=== PATIENT | male | born 1965 | race Caucasian/White ===

== ENCOUNTER 2021-01-17 14:01 | Outpatient (CLI) | payer BC | END 2021-01-17 14:02 | disposition home or self-care (01) | LOC: RT 14:01 | PROVIDERS: ATTEND Internal Medicine Cardiovascular Disease | DX: I45.10 Unspecified right bundle-branch block (principal) ==

== ENCOUNTER 2022-10-08 09:33 | Outpatient (CLI) | payer OTHER ==
[2022-10-08 14:37] LABS: BASOPHILS % (AUTO) 0.8 %; EOSINOPHILS # (AUTO) 0.2 10^3/uL (0.0-0.7); EOSINOPHILS % (AUTO) 3.8 %; HCT - HEMATOCRIT 45.5 % (42.0-52.0); HGB - HEMOGLOBIN 14.3 g/dL (14.0-18.0); LYMPHOCYTES # (AUTO) 1.4 10^3/uL (1.5-3.5); LYMPHOCYTES % (AUTO) 26.4 %; MEAN CORPUSCULAR HEMOGLOBIN 29.4 pg (27.0-31.0); MEAN CORPUSCULAR HGB CONC 31.4 g/dL (32.0-36.0); MEAN CORPUSCULAR VOLUME 93.4 fL (80.0-94.0); MEAN PLATELET VOLUME 10.5 fL (7.4-11.4); MONOCYTES # (AUTO) 0.4 10^3/uL (0.0-1.0); MONOCYTES % (AUTO) 8.3 %; NEUTROPHILS # (AUTO) 3.2 10^3/uL (1.5-6.6); NEUTROPHILS % (AUTO) 60.3 %; PLT - PLATELET COUNT 256 10^3/uL (130-450); RED BLOOD COUNT 4.87 10^6/uL (4.70-6.10); RED CELL DISTRIBUTION WIDTH 13.3 % (12.0-15.0); WHITE BLOOD COUNT 5.3 x10^3/uL (4.8-10.8)
[2022-10-08 15:27] LABS: ALBUMIN 3.9 g/dL (3.2-5.5); ALBUMIN/GLOBULIN RATIO 1.6 (1.0-2.2); ALKALINE PHOSPHATASE 74 IU/L (42-121); ALT ALANINE AMINOTRANSFERASE 17 IU/L (10-60); AST ASPARTATE AMINOTRANSFERASE 19 IU/L (10-42); BILIRUBIN,TOTAL 0.6 mg/dL (0.2-1.0); BUN - BLOOD UREA NITROGEN 14 mg/dL (6-20); CALCIUM 9.4 mg/dL (8.5-10.3); CARBON DIOXIDE - CO2 28 mmol/L (21-32); CHLORIDE 102 mmol/L (101-111); CHOL/HDL RATIO 2.7 (<5.0); CHOLESTEROL 197 mg/dL; GFR - MDRD 76 (>89); GLUCOSE 97 mg/dL (70-100); HDL CHOLESTEROL 72 mg/dL; POTASSIUM 4.7 mmol/L (3.5-5.0); PSA FREE 0.422 ng/mL (0.16-2.81); SODIUM 137 mmol/L (135-145); TOTAL PROTEIN 6.4 g/dL (6.7-8.2); TRIGLYCERIDES 21 mg/dL
[2022-10-08 15:28] LABS: PSA TOTAL 1.916 ng/mL (0.000-2.000)
[2022-10-08 15:40] LABS: THYROID STIMULATING HORMONE 1.33 uIU/mL (0.34-5.60)
[2022-10-08 21:01] LABS: ESTIMATED AVERAGE GLUCOSE 126 mg/dL (70-100)
== END 2022-10-08 09:34 | disposition home or self-care (01) ==
LOC: LAB.S 09:33
PROVIDERS: ATTEND Internal Medicine
DX: N40.1 Benign prostatic hyperplasia with lower urinary tract symptoms (principal); Z13.228 Encounter for screening for other metabolic disorders; Z13.9 Encounter for screening, unspecified; N52.9 Male erectile dysfunction, unspecified; Z80.42 Family history of malignant neoplasm of prostate
CPT/HCPCS: 36415; 80053; 80061; 83036; 83721; 84153; 84154; 84403; 84443; 85025

== ENCOUNTER 2022-10-21 07:04 | Outpatient (CLI) | payer OTHER ==
[2022-10-21 14:39] LABS: CHOL/HDL RATIO 2.8 (<5.0); CHOLESTEROL 202 mg/dL; HDL CHOLESTEROL 72 mg/dL; TRIGLYCERIDES 34 mg/dL
[2022-10-21 15:02] LABS: PSA TOTAL 1.843 ng/mL (0.000-2.000)
[2022-10-21 20:53] LABS: ESTIMATED AVERAGE GLUCOSE 120 mg/dL (70-100); HEMOGLOBIN A1c% 5.8 % (4.27-6.07)
== END 2022-10-21 07:05 | disposition home or self-care (01) ==
LOC: LAB.S 07:04
PROVIDERS: ATTEND Internal Medicine
DX: R89.8 Other abnormal findings in specimens from other organs, systems and tissues (principal)
CPT/HCPCS: 36415; 80061; 83036; 83721; 84153

== ENCOUNTER 2023-04-03 09:57 | Day surgery (SDC) | payer OTHER ==
[2023-04-03] MEDS ORDERED: LACTATED RINGERS 1,000 ML IV ONE ×2 (10:11→13:30)
--- NOTE | 2023-04-03 12:35 | ANESTHESIA ---
Pre-Anesthesia VS, & Labs - Diagnosis screening - Procedure colonoscopy Vital Signs: Temp Pulse Resp BP Pulse Ox O2 Flow Rate 36.5 C 56 L 14 114/72 100 04/03/23 10:23 04/03/23 10:23 04/03/23 10:23 04/03/23 10:23 04/03/23 10:23 Height: 5 ft 7 in Weight (kg): 62.1 kg Body Mass Index: 21.4 BMI Classification: Normal - NPO >8 hours Home Medications and Allergies No Known Home Medications 10/07/13 Allergies/Adverse Reactions: Allergies Allergy/AdvReac Type Severity Reaction Status Date / Time No Known Drug Allergies Allergy Verified 10/07/13 10:10 Anes History & Medical History - Anesthetic History Anesthesia Complications: reports: No previous complications Family history of Anesthesia Complications: Denies Family history of Malignant Hyperthermia: Denies - Medical History Cardiovascular: reports: Murmur, Arrhythmia Pulmonary: reports: None Gastrointestinal: reports: None Urinary: reports: Benign prostate hypertrophy Musculoskeletal: reports: None Endocrine/Autoimmune: reports: None Skin: reports: None - Surgical History General: reports: Colonoscopy Orthopedic: reports: ACL reconstruction Exam General: Alert, Oriented x3, Cooperative Dental: WNL Mouth Openin Fingerbreadth Neck Mobility: Normal Mallampati classification: II Thyromental Distance: 4-6 cm Respiratory: Lungs clear Cardiovascular: Regular rate Plan Anesthesia Type: General, Total IV Consent for Procedure(s) Verified and Reviewed: Yes Code Status: Attempt Resuscitation ASA classification: 1-Healthy patient Is this case an emergency?: No
[2023-04-03] MEDS ORDERED: MIDAZOLAM 2 MG/2 ML VIAL ONE (12:41)
[2023-04-03] MEDS ORDERED: fentaNYL 100 MCG/2 ML VIAL ONE ×2 (13:20→14:32)
[2023-04-03 13:40] VITALS: O2SAT 97
[2023-04-03 13:49] VITALS: BP 115/75
--- NOTE | 2023-04-03 14:16 | ANESTHESIA POST OP EVALUATION ---
Anesthesia Post Eval - Post Anesthesia Eval Vitals: Last Vital Signs Temp 36.7 C 04/03/23 13:47 Pulse 54 L 04/03/23 13:47 Resp 15 04/03/23 13:47 BP 115/75 04/03/23 13:47 Pulse Ox 97 04/03/23 13:47 O2 Flow Rate CV Function Including HR & BP: Stable Pain Control: Satisfactory Nausea & Vomiting: Negative Mental Status: Baseline Respiratory Status: Airway Patent Hydration Status: Satisfactory Anesthesia Complications: None
[2023-04-03] MEDS ORDERED: PROPOFOL 200 MG/20 ML VIAL IVP ONE (14:32)
== END 2023-04-03 09:58 | disposition home or self-care (01) ==
LOC: SDS 09:57
PROVIDERS: ATTEND Surgery
DX: Z12.11 Encounter for screening for malignant neoplasm of colon (principal); Z80.0 Family history of malignant neoplasm of digestive organs
CPT/HCPCS: 45378; J7120

== ENCOUNTER 2023-04-10 09:11 | Outpatient (CLI) | payer OTHER ==
[2023-04-10 15:13] LABS: CHOL/HDL RATIO 3.5 (<5.0); CHOLESTEROL 223 mg/dL; HDL CHOLESTEROL 64 mg/dL; LDL CHOLESTEROL,CALCULATED 150 mg/dL; LDL/HDL RATIO 2.3 (<3.6); TRIGLYCERIDES 44 mg/dL (48-352); VLDL CHOLESTEROL 9 mg/dL
[2023-04-10 15:26] LABS: PSA TOTAL 1.494 ng/mL (0.000-2.000)
[2023-04-14 17:08] LABS: FREE TESTOSTERONE(DIRECT) 9.3 pg/mL (7.2-24.0)
== END 2023-04-10 09:12 | disposition home or self-care (01) ==
LOC: LAB.S 09:11
PROVIDERS: ATTEND Internal Medicine
DX: R89.8 Other abnormal findings in specimens from other organs, systems and tissues (principal); Z80.42 Family history of malignant neoplasm of prostate; N40.1 Benign prostatic hyperplasia with lower urinary tract symptoms; N52.9 Male erectile dysfunction, unspecified
CPT/HCPCS: 36415; 80061; 83721; 84153; 84402; 84403

== ENCOUNTER 2023-07-23 07:34 | Outpatient (CLI) | payer OTHER ==
[2023-07-24 05:13] LABS: SEX HORM BINDING GLOB SERUM 36.4 nmol/L (19.3-76.4)
== END 2023-07-23 07:35 | disposition home or self-care (01) ==
LOC: LAB.S 07:34
PROVIDERS: ATTEND Internal Medicine
DX: N52.9 Male erectile dysfunction, unspecified (principal); E29.1 Testicular hypofunction
CPT/HCPCS: 36415; 83001; 83002; 84270; 84402; 84403

== ENCOUNTER 2023-11-25 17:16 | Emergency (ER) | payer OTHER ==
--- NOTE | 2023-11-25 17:33 | ED Physician Documentation ---
PD HPI BACK PAIN - Stated complaint Stated Complaint: BACK PX - Chief complaint Chief Complaint: Back Pain - History obtained from History obtained from: Patient - Additional information Additional information: Very healthy for age 58-year-old gentleman presents with acute onset left flank pain starting at 9 AM. No personal history of kidney stones but extensive family history of same. He is mildly nauseous with it. At first he thought it was muscular and tried stretching but with no relief. No urinary complaints or hematuria. PD PAST MEDICAL HISTORY - Past Medical History Past Medical History: Yes Cardiovascular: Murmur, Arrhythmia Respiratory: None Neuro: None Endocrine/Autoimmune: None GI: None : Benign prostate hypertrophy HEENT: None Psych: None Musculoskeletal: None Derm: None - Past Surgical History Past Surgical History: Yes General: Colonoscopy Ortho: ACL reconstruction - Present Medications Home Medications: Ambulatory Orders Medication Instructions Recorded Confirmed No Known Home Medications 10/07/13 11/25/23 - Allergies Allergies/Adverse Reactions: Allergies Allergy/AdvReac Type Severity Reaction Status Date / Time No Known Drug Allergies Allergy Verified 11/25/23 17:24 - Social History Does the pt smoke?: No Smoking Status: Never smoker Does the pt drink ETOH?: No Does the pt have substance abuse?: No - Immunizations Immunizations are current?: Yes - POLST Patient has POLST: No PD ED PE NORMAL - Vitals Vital signs reviewed: Yes - General General: Alert and oriented X 3, Other (Appears mildly uncomfortable. Younger than stated age.) - Cardiac Cardiac: RRR, No murmur - Respiratory Respiratory: No respiratory distress, Clear bilaterally - Abdomen Abdomen: Normal bowel sounds, Soft, Non tender - Back Back: No CVA TTP - Neuro Neuro: Alert and oriented X 3, Normal speech Eye Opening: Spontaneous Motor: Obeys Commands Verbal: Oriented GCS Score: 15 - Psych Psych: Normal mood, Normal affect Results - Vitals Vitals: Vital Signs - 24 hr 11/25/23 17:19 Temperature 36.9 C Heart Rate 62 Respiratory 16 Rate Blood Pressure 144/72 H O2 Saturation 100 Oxygen O2 Source Room air - Labs Labs: Laboratory Tests 11/25/23 11/25/23 11/25/23 17:51 17:51 18:15 WBC 8.6 RBC 4.52 L Hgb 13.9 L Hct 41.7 L MCV 92.3 MCH 30.8 MCHC 33.3 RDW 13.0 Plt Count 267 MPV 10.2 Neut # (Auto) 6.9 H Lymph # (Auto) 1.3 L [place] # (Auto) 0.3 Eos # (Auto) 0.0 Baso # (Auto) 0.0 Absolute Nucleated RBC 0.00 Nucleated RBC % 0.0 Sodium 135 Potassium 3.9 Chloride 100 L Carbon Dioxide 26 Anion Gap 9.0 BUN 22 H Creatinine 1.0 Estimated GFR (MDRD) 76 L Glucose 106 H Calcium 9.7 Total Bilirubin 0.7 AST 20 ALT 15 Alkaline Phosphatase 83 Total Protein 6.7 Albumin 4.3 Globulin 2.4 Albumin/Globulin Ratio 1.8 Urine Color YELLOW Urine Clarity CLEAR Urine pH 6.0 Ur Specific [place] >=1.030 H Urine Protein NEGATIVE Urine Glucose (UA) NEGATIVE Urine Ketones >=80 H Urine Occult Blood NEGATIVE Urine Nitrite NEGATIVE Urine Bilirubin NEGATIVE Urine Urobilinogen 0.2 (NORMAL) Ur Leukocyte Esterase NEGATIVE Ur Microscopic Review NOT INDICATED Urine Culture Comments NOT INDICATED - Rads (name of study) CT KUB some showing a small right nephrolith, otherwise negative Relevant Findings:: Final report received, EMP independent interpretation of test PD Medical Decision Making - ED course ED course: He presents with left-sided back pain, it is worse with bending or twisting but also concern for kidney stone. CBC showing very mild anemia, CMP with elevated BUN and concentrated urinalysis. CT was negative so I suspect this is muscular. He does not appear an extremis like a dissection or other vascular emergency. He was happy with ibuprofen here. Departure - Departure Disposition: 01 Home, Self Care Clinical Impression: Back pain Qualifiers: Back pain location: low back pain Chronicity: acute Back pain laterality: left Sciatica presence: without sciatica Qualified Code(s): M54.50 - Low back pain, unspecified Condition: Good Record reviewed to determine appropriate education?: Yes Instructions: ED Low Back Pain Injury Comments: As discussed CAT scan showed a small stone in your right kidney, it is not passing and may or may not ever bother you. There is no stone on the left side where your pain is. Otherwise your urine was concentrated and your BUN was elevated a bit suggestive of mild dehydration to drink plenty of fluids. You can take ibuprofen for the pain. Heat and gentle stretching. Return for new or worsening symptoms. Follow-up with your primary care physician, next available appointment.
[2023-11-25] MEDS: IBUPROFEN 600 MG TABLET PO STA (17:44)
[2023-11-25 18:09] LABS: BASOPHILS % (AUTO) 0.5 %; EOSINOPHILS % (AUTO) 0.2 %; HCT - HEMATOCRIT 41.7 % (42.0-52.0); HGB - HEMOGLOBIN 13.9 g/dL (14.0-18.0); LYMPHOCYTES # (AUTO) 1.3 10^3/uL (1.5-3.5); LYMPHOCYTES % (AUTO) 14.8 %; MEAN CORPUSCULAR HEMOGLOBIN 30.8 pg (27.0-31.0); MEAN CORPUSCULAR HGB CONC 33.3 g/dL (32.0-36.0); MEAN CORPUSCULAR VOLUME 92.3 fL (80.0-94.0); MEAN PLATELET VOLUME 10.2 fL (7.4-11.4); MONOCYTES # (AUTO) 0.3 10^3/uL (0.0-1.0); NEUTROPHILS # (AUTO) 6.9 10^3/uL (1.5-6.6); NEUTROPHILS % (AUTO) 80.3 %; PLT - PLATELET COUNT 267 10^3/uL (130-450); RED BLOOD COUNT 4.52 10^6/uL (4.70-6.10); WHITE BLOOD COUNT 8.6 x10^3/uL (4.8-10.8)
[2023-11-25 18:19] LABS: BILIRUBIN,URINE NEGATIVE (NEGATIVE); GLUCOSE, URINE (UA) NEGATIVE (NEGATIVE); KETONES,URINE (UA) >=80 mg/dL (NEGATIVE); LEUKOCYTE ESTERASE, URINE NEGATIVE (NEGATIVE); NITRITE,URINE NEGATIVE (NEGATIVE); OCCULT BLOOD,URINE NEGATIVE (NEGATIVE); PROTEIN,URINE NEGATIVE (NEGATIVE); UROBILINOGEN,URINE 0.2 (NORMAL) E.U./dL (NORMAL)
[2023-11-25 18:23] LABS: ALBUMIN 4.3 g/dL (3.2-5.5); ALBUMIN/GLOBULIN RATIO 1.8 (1.0-2.2); BILIRUBIN,TOTAL 0.7 mg/dL (0.2-1.0); CALCIUM 9.7 mg/dL (8.5-10.3); POTASSIUM 3.9 mmol/L (3.5-4.5); TOTAL PROTEIN 6.7 g/dL (6.4-8.9)
[2023-11-25 18:27] LABS: CLARITY,URINE CLEAR (CLEAR)
--- NOTE | 2023-11-25 19:30 | CT Report ---
PROCEDURE: Abdomen/Pelvis WO INDICATIONS: l flank pn TECHNIQUE: A CT scan of the abdomen and pelvis was performed without the use of intravenous contrast. Images we re recorded and evaluated at appropriate window settings. Reformats: coronal and sagittal. For radiat ion dose reduction, the following was used: automated exposure control, adjustment of mA and/or kV ac cording to patient size. COMPARISON: None. FINDINGS: Image quality: Diagnostic. Lower chest: Unremarkable. Liver: No contour-deforming mass. Gallbladder: No radiopaque stones or wall thickening. Biliary tree: No intrahepatic or extrahepatic dilation, accounting for age. Spleen: No splenomegaly. Pancreas: No pancreatic ductal dilation. Adrenals: No adrenal nodule. Kidneys and ureters: Punctate nonobstructing 2 mm right renal calcification. No hydronephrosis. No co ntour-deforming mass. Stomach, bowel and peritoneum: No gastric or small bowel dilation. No abnormal wall thickening. No pa thologic free fluid. Few diverticula without evidence of diverticulitis. Normal appendix. Lymph nodes: No central or retroperitoneal adenopathy. Vessels: No infrarenal aortic aneurysm. Reproductive organs: Unremarkable. Bladder: Decompressed, limiting evaluation. No calcified bladder stones. Pelvic lymph nodes: No adenopathy by size criteria. Bones: No aggressive osseous abnormality. Other: No significant ventral or inguinal hernia. IMPRESSION: 1.No hydronephrosis or obstructing renal stone. Punctate nonobstructing 2 mm right renal stone. 2.No acute findings within the abdomen or pelvis to explain patient's symptoms. Reviewed by: Devon Zheng MD on 11/25/2023 7:29 PM PDT Approved by: Devon Zheng MD on 11/25/2023 7:29 PM PDT Station ID: [id number]
[2023-11-25 19:50] VITALS: BP 146/96; O2SAT 99
== END 2023-11-25 19:43 | disposition home or self-care (01) ==
LOC: ED 17:16
DX: M54.50 Low back pain, unspecified (principal)
CPT/HCPCS: 36415; 74176; 80053; 81003; 85025; 99283; 99284; A9270; 81001; 87086

== ENCOUNTER 2024-01-13 07:16 | Outpatient (CLI) | payer OTHER ==
[2024-01-13 15:09] LABS: BASOPHILS # (AUTO) 0.1 10^3/uL (0.0-0.1); BASOPHILS % (AUTO) 1.1 %; EOSINOPHILS # (AUTO) 0.2 10^3/uL (0.0-0.7); EOSINOPHILS % (AUTO) 3.3 %; HCT - HEMATOCRIT 43.6 % (42.0-52.0); HGB - HEMOGLOBIN 13.5 g/dL (14.0-18.0); LYMPHOCYTES # (AUTO) 1.7 10^3/uL (1.5-3.5); LYMPHOCYTES % (AUTO) 30.3 %; MEAN CORPUSCULAR HEMOGLOBIN 29.6 pg (27.0-31.0); MEAN CORPUSCULAR VOLUME 95.6 fL (80.0-94.0); MEAN PLATELET VOLUME 10.5 fL (7.4-11.4); MONOCYTES # (AUTO) 0.4 10^3/uL (0.0-1.0); MONOCYTES % (AUTO) 6.4 %; NEUTROPHILS # (AUTO) 3.2 10^3/uL (1.5-6.6); NEUTROPHILS % (AUTO) 58.7 %; PLT - PLATELET COUNT 261 10^3/uL (130-450); RED BLOOD COUNT 4.56 10^6/uL (4.70-6.10); RED CELL DISTRIBUTION WIDTH 13.3 % (12.0-15.0); WHITE BLOOD COUNT 5.5 x10^3/uL (4.8-10.8)
[2024-01-13 15:42] LABS: ESTIMATED AVERAGE GLUCOSE 117 mg/dL (70-100); HEMOGLOBIN A1c% 5.7 % (4.27-6.07)
[2024-01-13 15:47] LABS: ALBUMIN 3.9 g/dL (3.2-5.5); ALBUMIN/GLOBULIN RATIO 1.6 (1.0-2.2); ALKALINE PHOSPHATASE 81 IU/L (42-121); ALT ALANINE AMINOTRANSFERASE 13 IU/L (10-60); AST ASPARTATE AMINOTRANSFERASE 15 IU/L (10-42); BILIRUBIN,TOTAL 0.6 mg/dL (0.2-1.0); BUN - BLOOD UREA NITROGEN 25 mg/dL (6-20); CALCIUM 9.2 mg/dL (8.5-10.3); CARBON DIOXIDE - CO2 30 mmol/L (21-32); CHLORIDE 105 mmol/L (101-111); CHOL/HDL RATIO 3.1 (<5.0); CHOLESTEROL 196 mg/dL; CRP HIGH SENSITIVITY 0.68 mg/L; GFR - MDRD 76 (>89); GLUCOSE 96 mg/dL (74-104); HDL CHOLESTEROL 63 mg/dL; POTASSIUM 3.9 mmol/L (3.5-4.5); SODIUM 138 mmol/L (135-145); TOTAL PROTEIN 6.3 g/dL (6.4-8.9); TRIGLYCERIDES 34 mg/dL
[2024-01-17 22:07] LABS: FREE TESTOSTERONE(DIRECT) 9.3 pg/mL (6.6-18.1)
== END 2024-01-13 07:17 | disposition home or self-care (01) ==
LOC: LAB.S 07:16
PROVIDERS: ATTEND Internal Medicine
DX: E75.5 Other lipid storage disorders (principal); Z13.9 Encounter for screening, unspecified; Z13.820 Encounter for screening for osteoporosis; Z13.228 Encounter for screening for other metabolic disorders; Z80.42 Family history of malignant neoplasm of prostate; N40.1 Benign prostatic hyperplasia with lower urinary tract symptoms; R89.8 Other abnormal findings in specimens from other organs, systems and tissues
CPT/HCPCS: 36415; 80053; 80061; 81599; 82172; 83036; 83721; 84153; 84154; 84402; 84403; 85025; 86141